=== PATIENT | male | born 1980 ===

== ENCOUNTER 2024-08-29 01:47 | Emergency (ER) | payer SELFPAY ==
[2024-08-29 01:51] VITALS: BP 151/88; PULSE 80; RESP 22; TEMP 37.2; O2SAT 98; BMI 33.0
== END 2024-08-29 08:51 | disposition left against medical advice (07) ==
PROVIDERS: Emergency Provider Emergency Medicine
DX: R04.0 Epistaxis (principal)
CPT/HCPCS: 99281